=== PATIENT | male | born 1985 | race Caucasian/White ===

== ENCOUNTER 2023-04-24 08:52 | Day surgery (SDC) | payer OTHER ==
[2023-04-24] MEDS ORDERED: Sodium Chloride 0.9% 1,000 ML IV ONE (09:19)
[2023-04-24] MEDS ORDERED: Ondansetron 4 MG/2 ML SDV IVPUSH ONE (09:19)
[2023-04-24] MEDS ORDERED: Ketorolac 30 MG/ML SDV IVPUSH ONE (09:19)
[2023-04-24 09:29] LABS: APPEARANCE,URINE CLEAR; BILIRUBIN,URINE NEGATIVE (NEGATIVE); COLOR,URINE YELLOW; GLUCOSE,URINE NEGATIVE (NEGATIVE); KETONES,URINE NEGATIVE (NEGATIVE); LEUKOCYTE ESTERASE,URINE NEGATIVE (NEGATIVE); NITRITE,URINE NEGATIVE (NEGATIVE); OCCULT BLOOD,URINE NEGATIVE (NEGATIVE); PROTEIN,URINE NEGATIVE (NEGATIVE); UROBILINOGEN,URINE 0.2 EU/dL (<2.0)
[2023-04-24 09:29] LABS: BASOPHILS PERCENT AUTO 0.3 % (0.0-1.5); EOSINOPHILS PERCENT AUTO 0.1 % (0.0-7.0); HEMATOCRIT 44.2 % (38.0-50.0); HEMOGLOBIN 14.6 g/dL (13.0-17.0); LYMPHOCYTES ABSOLUTE AUTO 0.9 K/uL (0.6-2.4); LYMPHOCYTES PERCENT AUTO 8.2 % (16.0-40.0); MEAN CORPUSCULAR HEMOGLOBIN 26.6 pg (27.0-32.0); MEAN CORPUSCULAR VOLUME 80.7 fL (80.0-98.0); MONOCYTES PERCENT AUTO 8.9 % (0.0-15.0); NEUTROPHILS ABSOLUTE AUTO 9.1 K/uL (1.4-5.7); NEUTROPHILS PERCENT AUTO 82.5 % (48.0-80.0); NRBC ABSOLUTE 0 K/uL; PLATELET COUNT,PLT 279 K/uL (150-400); RED BLOOD CELL COUNT 5.48 M/uL (4.50-5.90); WHITE BLOOD CELL COUNT,WBC 10.98 K/uL (4.0-11.0)
[2023-04-24 09:45] LABS: A/G RATIO 1.5 (0.9-1.6); ALBUMIN 4.5 g/dL (3.4-5.0); BILIRUBIN TOTAL 0.7 mg/dL (0.2-1.0); CALCIUM 8.8 mg/dL (8.5-10.1); CARBON DIOXIDE,CO2 25.1 mmol/L (21.0-32.0); CREATININE 0.9 mg/dL (0.8-1.3); EST CRCL DRUG DOSING (CG) 129.39 mL/min; POTASSIUM,K 3.8 mmol/L (3.5-5.1); PROTEIN TOTAL,TP 7.6 g/dL (6.4-8.2)
[2023-04-24] MEDS ORDERED: Iopamidol 755 Mg/ML 100 ML Bottle IVPUSH ONE (10:17)
[2023-04-24] MEDS ORDERED: Piperacillin/Tazobactam 4.5 GM in Sodium Chloride 0.9% 100 ML IV ONE (10:40)
[2023-04-24] MEDS ORDERED: Scopolamine 1.5 MG Transdermal Patch ONE (13:01)
[2023-04-24] MEDS ORDERED: Ropivacaine 0.5% 5 MG/ML 30 ML SDV ONE (13:48)
[2023-04-24] MEDS ORDERED: Bupivacaine 0.25% 30 ML SDV ONE (13:48)
[2023-04-24] MEDS ORDERED: Propofol 200 MG/20 ML SDV ONE (13:49)
[2023-04-24] MEDS ORDERED: fentaNYL 100 MCG/2 ML SDV ONE ×2 (13:49→16:04)
[2023-04-24] MEDS ORDERED: Dexmedetomidine 200 MCG/2 ML SDV ONE (13:51)
[2023-04-24] MEDS ORDERED: Bupivacaine 0.5% 30 ML SDV ONE (13:53)
[2023-04-24] MEDS ORDERED: Lidocaine 1% 5 ML VIAL ONE (13:53)
[2023-04-24] MEDS ORDERED: Dexamethasone 4 MG/ML 5 ML MDV ONE (15:08)
[2023-04-24] MEDS ORDERED: Ondansetron 4 MG/2 ML SDV ONE (15:08)
[2023-04-24] MEDS ORDERED: Metoclopramide 10 MG/2 ML SDV ONE (15:11)
[2023-04-24] MEDS ORDERED: Magnesium Sulfate (4.06 MEQ/ML) 5 GM/10 ML SDV ONE (15:27)
[2023-04-24] MEDS ORDERED: Sugammadex Sodium 200 MG/2 ML VIAL ONE (16:03)
[2023-04-24] MEDS ORDERED: Acetaminophen/HYDROcodone 325-5 MG Tab PO PRN (16:22)
[2023-04-24] MEDS ORDERED: Ketorolac 30 MG/ML SDV IVPUSH PRN (16:22)
[2023-04-24] MEDS ORDERED: Ondansetron 4 MG/2 ML SDV IVPUSH PRN (16:22)
[2023-04-24] MEDS ORDERED: diphenhydrAMINE 50 MG/ML SDV IVPUSH PRN (16:22)
[2023-04-24] MEDS ORDERED: HYDROmorphone 2 MG/ML Syringe IVPUSH PRN (16:22)
[2023-04-25] MEDS ORDERED: HYDROmorphone 1 MG/ML Syringe IVPUSH PRN (06:20)
== END 2023-04-25 09:45 | disposition home or self-care (01) ==
LOC: MW.ED 08:52 → MW.SDS 12:34 → MW.MS 17:04 → MW.SDS 04-25 09:45
PROVIDERS: ATTEND Surgery
DX: K35.30 Acute appendicitis with localized peritonitis, without perforation or gangrene (principal); D36.0 Benign neoplasm of lymph nodes; K66.0 Peritoneal adhesions (postprocedural) (postinfection); Z79.899 Other long term (current) drug therapy
CPT/HCPCS: 36415; 44970; 74177; 80053; 81003; 83690; 85025; J1100; J1885; J2405; J2543; J2704; J2765; J2795; J3010; J3475; J3490; J7030; Q9967; 99284